=== PATIENT | female | born 1995 | race African-American/Black ===

== ENCOUNTER 2018-10-12 17:44 | Emergency (ER) | payer SELFPAY ==
[~2018-10-12] VITALS: Ht 157.5 cm; Wt 54.4 kg
[2018-10-12 18:12] LABS: APPEARANCE,URINE CLOUDY; BILIRUBIN, URINE 1+ (NEGATIVE); COLOR,URINE BROWN; GLUCOSE, URINE (UA) NEGATIVE (NEGATIVE); KETONES,URINE 4+ (NEGATIVE); LEUKOCYTE ESTERASE ,URINE 3+ (NEGATIVE); NITRITE,URINE POSITIVE (NEGATIVE); PH,URINE 6 (4.5-8.0); PROTEIN,URINE 3+ (NEGATIVE); UROBILINOGEN,URINE 1 MG/DL (0.0-1.0)
--- NOTE | 2018-10-12 18:24 | Emergency Room Report ---
History of Present Illness General Chief Complaint: Fever Source: Patient Present Illness HPI Patient presents with complaints of fevers and body aches patient reports that she was having some suprapubic cramping Now more right flank area discomfort Ongoing since Thursday Denies any rash she feels dehydrated denies any chest pain or shortness of breath denies any vomiting or diarrhea Patient has taken an AZO as she felt like she might have a bladder infection however this medicine did not help Allergies: Coded Allergies: No Known Allergies (Unverified , 10/12/18) Patient History Past Medical History: see triage record Pertinent Family History: none Last Menstrual Period: 09/30/18 Now: No Reviewed Nursing Documentation: PMH: Agreed; PSxH: Agreed Nursing Documentation-PMH Past Medical History: No Stated History Review of Systems All Other Systems: negative except mentioned in HPI Physical Exam Vital Signs Date Time Temp Pulse Resp B/P (MAP) Pulse Ox O2 Delivery O2 Flow Rate FiO2 10/12/18 17:51 97.3 101 19 108/73 (85) 100 Room Air Sp02 EP Interpretation: reviewed, normal General Appearance: well appearing, no apparent distress Head: normocephalic, atraumatic Eyes: bilateral eye PERRL, bilateral eye EOMI ENT: hearing grossly normal, normal pharynx, TMs + canals normal, uvula midline Neck: full range of motion, supple, no meningismus, no bony tend Respiratory: lungs clear, normal breath sounds, no rhonchi, no respiratory distress, no retraction, no accessory muscle use Cardiovascular #1: normal peripheral pulses, regular rate, rhythm, no edema, no gallop, no JVD, no murmur Gastrointestinal: normal bowel sounds, non tender, soft, no mass, no organomegaly, non-distended, no guarding, no hernia, no pulsatile mass, no rebound Genitourinary: no CVA tenderness Musculoskeletal: normal inspection Neurologic: oriented x3, responsive, warp tier III-XII nml as tested, motor strength/ tone normal, sensory intact Psychiatric: mood/affect normal Skin: normal color, no rash, warm/dry, palpation normal Lymphatic: normal inspection, no adenopathy Medical Decision Making Diagnostic Impression: Primary Impression: UTI (urinary tract infection) Additional Impression: Pyelonephritis ER Course With the patient's history and examination, multiple differentials considered, including but not limited to , ectopic , ovarian torsion, gastritis, cholecystitis, pancreatitis, appendicitis Patient's urine sample does show significant infectious findings given her discomfort and presentation IV hydration with antibiotics were provided patient does not appear septic or toxic Is tolerating oral intake I discussed with her the initial conservative outpatient attempt she will return with any worsening symptoms any increased nausea or difficulty taking her medications Labs Test 10/12/18 18:05 Urine Color Brown Urine Appearance Cloudy Urine pH 6 (4.5-8.0) Urine Specific [place] 1.020 (1.005-1.035) Urine Protein 3+ (NEGATIVE) Urine Glucose (UA) Negative (NEGATIVE) Urine Ketones 4+ (NEGATIVE) Urine Blood 5+ (NEGATIVE) Urine Nitrite Positive (NEGATIVE) Urine Bilirubin 1+ (NEGATIVE) Urine Ictotest Negative (NEGATIVE) Urine Urobilinogen 1 MG/DL (0.0-1.0) Urine Leukocyte Esterase 3+ (NEGATIVE) Urine RBC 5-10 /HPF (0 - 2) Urine WBC Tntc /HPF (0 - 2) Urine Squamous Epithelial Cells Occasional /LPF Urine Bacteria Moderate /HPF (NONE) Urine HCG, Qualitative Negative (NEGATIVE) Last Vital Signs Date Time Temp Pulse Resp B/P (MAP) Pulse Ox O2 Delivery O2 Flow Rate FiO2 10/12/18 17:51 97.3 101 19 108/73 (85) 100 Room Air Status: improved Disposition: HOME, SELF-CARE Condition: Improved Scripts Ibuprofen* (MOTRIN*) 600 Mg Tablet 600 MG ORAL Q8H PRN for For Pain, #20 TAB 0 Refills Prov: Og Do DO 10/12/18 Phenazopyridine Hcl* (PYRIDIUM*) 100 Mg Tablet 100 MG ORAL THREE TIMES A DAY, #9 TAB Prov: Og Do DO 10/12/18 Cephalexin* (KEFLEX*) 500 Mg Capsule 500 MG ORAL EVERY 6 HOURS for 10 Days, CAP Prov: Og Do DO 10/12/18 Additional Instructions: Patient is provided with the discharge instructions notified to follow up with primary doctor in the next 2-3 days otherwise return to the er with any worsening symptoms. Please note that this report is being documented using DRAGON technology. This can lead to erroneous entry secondary to incorrect interpretation by the dictating instrument. Og Do DO Oct 12, 2018 18:24
[2018-10-12] MEDS ORDERED: cefTRIAXone 1 GM in NS 55 ML IVPB ONE (18:30)
--- NOTE | 2018-10-12 18:39 | NUR ---
ED Nurse Note: Pt has been having fever and bodyache x 2 days. Pain 8/10. Oral temp 97.4 at triage. AOx4, HR 101, PA aware, other VSS. Will cont to monitor.
[2018-10-12 18:40] VITALS: BP 108/73
[2018-10-12] MEDS ORDERED: CEPHALEXIN500 MG ORAL (18:57)
[2018-10-12] MEDS ORDERED: IBUPROFEN600 MG ORAL (18:57)
[2018-10-12] MEDS ORDERED: PHENAZOPYRIDIN100 MG ORAL (18:57)
--- NOTE | 2018-10-12 19:05 | NUR ---
ED Nurse Note: Received Pt and report from day shift. Knowing Pt will DC after IV antibiotic and fluid. Will assess pt after fluid done.
[2018-10-12 19:39] VITALS: BP 111/81
--- NOTE | 2018-10-12 19:56 | NUR ---
ER DISCHARGE NOTE: Patient is cleared to be discharged per ERMD, pt is aox4, on room air, with stable vital signs. pt was given dc and prescription instructions, pt was able to verbalize understanding, pt id band and iv site removed without complications. pt is able to ambulate with steady gait with family member. pt took all belongings.
[2018-10-12 19:57] VITALS: BP 111/81
== END 2018-10-12 19:59 | disposition home or self-care (01) ==
LOC: EMR 18:25
DX: R50.9 Fever, unspecified (principal)
CPT/HCPCS: 81003; 81025; 87086; 87181; 96361; 96365; 99284; J0696

== ENCOUNTER 2020-06-15 19:10 | Emergency (ER) | payer MEDICAID, OTHER ==
[~2020-06-15] VITALS: Ht 154.9 cm; Wt 49.0 kg
[~2020-06-15 19:10] MED LIST: CEPHALEXIN500 MG ORAL; FAMOTIDINE20 MG ORAL; IBUPROFEN600 MG ORAL; MAALOX MAXIMUM355 M1 PO; PHENAZOPYRIDIN100 MG ORAL
[2020-06-15 19:12] VITALS: BP 110/71
--- NOTE | 2020-06-15 19:26 | Emergency Room Report ---
History of Present Illness General Chief Complaint: Sore Throat Source: Patient Present Illness HPI 2 days of illness with complaints of sore throat. She has felt feverish but has no documented temperature. She is a mildly productive cough which is minimal. She rates the pain 6/10 at this time. Painful to swallow. It does not radiate. She is taking no medication for this. No rash or joint pain. Last menstruation was normal. She denies exposure to Covid positive contacts. 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 Last Menstrual Period: 05/17/20 Reviewed Nursing Documentation: PMH: Agreed; PSxH: Agreed Nursing Documentation-PMH Past Medical History: No Stated History Hx Cardiac Problems: No Hx Hypertension: No Hx Pacemaker: No Hx Asthma: No Hx COPD: No Hx Diabetes: No Hx Cancer: No Hx Gastrointestinal Problems: No Hx Dialysis: No Hx Neurological Problems: No Hx Cerebrovascular Accident: No Hx Seizures: No Review of Systems Constitutional: Reports: see HPI Respiratory: Reports: see HPI Cardiovascular: Denies: chest pain Genitourinary: Reports: see HPI Musculoskeletal: Reports: see HPI Skin: Reports: see HPI Neurological: Denies: headache Physical Exam Vital Signs Date Time Temp Pulse Resp B/P (MAP) Pulse Ox O2 Delivery O2 Flow Rate FiO2 06/15/20 19:12 98.8 96 17 110/71 (84) 99 Room Air Sp02 EP Interpretation: reviewed, normal General Appearance: well appearing, no apparent distress, GCS 15 Head: normocephalic Eyes: bilateral eye normal inspection, bilateral eye PERRL, bilateral eye EOMI ENT: moist mucus membranes, pharyngeal erythema, tonsillar exudate Neck: normal inspection, full range of motion Respiratory: chest non-tender, lungs clear Cardiovascular #1: regular rate, rhythm Gastrointestinal: normal inspection Musculoskeletal: gait/station normal Neurologic: alert, grossly normal Psychiatric: mood/affect normal Skin: normal color, no rash, warm/dry Medical Decision Making Diagnostic Impression: Primary Impression: Strep pharyngitis ER Course Patient presents with sore throat. Differential includes viral, COVID-19, strep amongst others. The patient is nontoxic at this time. Antibiotics are indicated. In addition the patient is given a dose of dexamethasone in the emergency department. Medical emergencies at this time. Patient stable for outpatient observation and treatment. Last Vital Signs Date Time Temp Pulse Resp B/P (MAP) Pulse Ox O2 Delivery O2 Flow Rate FiO2 06/15/20 19:46 98.8 81 17 110/71 99 Room Air Status: unchanged Disposition: HOME, SELF-CARE Condition: Stable Scripts Amoxicillin* (AMOXIL*) 500 Mg Capsule 500 MG ORAL EVERY 8 HOURS, #21 CAP Prov: Matheus Alejandre MD 06/15/20 Matheus Alejandre MD Jun 15, 2020 19:26
[2020-06-15] MEDS ORDERED: AMOXICILLIN500 MG ORAL (19:29)
--- NOTE | 2020-06-15 19:42 | NUR ---
ED Nurse Note: Pt c/o sore throat. Pt ambulated into ED, AAO x4.
--- NOTE | 2020-06-15 19:43 | NUR ---
ED Nurse Note: Pt cleared by health care Provider for discharge. D/C instructions/prescription was given and explained to pt, and pt verbalized understanding of teachings. All medical devices such as ID band removed. Pt is AAO x4, ambulatory and left with all personal belongings.
[2020-06-15 19:44] VITALS: BP 110/71
== END 2020-06-15 19:43 | disposition home or self-care (01) ==
LOC: EMR 19:30
DX: J02.0 Streptococcal pharyngitis (principal); F17.200 Nicotine dependence, unspecified, uncomplicated
CPT/HCPCS: J8540; Z7502; 99282